=== PATIENT | male | born 1960 | race Caucasian/White ===

== ENCOUNTER 2023-09-20 07:27 | Emergency (ER) | payer OTHER, BC, SELFPAY ==
[2023-09-20 07:30] VITALS: BP 159/81
[2023-09-20 07:34] VITALS: BP 159/81
[2023-09-20] MEDS: LET TOPICAL ANESTHETIC GEL 3 ML TOPICAL (07:42)
[2023-09-20] MEDS: ADACEL 0.5 ML IM (07:48)
--- NOTE | 2023-09-20 08:42 | ED.GENMED ---
History of Present Illness
General
Chief Complaint: Head Injury
Time Seen by Provider: 09/20/23 07:28
Travel History
Have you had any contact with someone who has COVID-19?: No
Do you have any symptoms of coronavirus? Fever > 100 degrees, chills, cough, shortness of breath, sore throat, loss of taste or smell, muscle aches, or headache?: No
History of Present Illness
History of Present Illness:
63-year-old male with history of hypertension and hyperlipidemia presents to the emergency department for evaluation after mechanical fall that occurred when slipping on ice at work. Struck her head directly on the ground, there is a hematoma with
laceration to the midline parietal scalp. Bleeding is currently controlled. He takes 81 mg aspirin but no anticoagulants. Reports generalized neck and back pain, also reports right knee and left hand pain. Denies loss of consciousness. Denies
current dizziness, vision changes
Past History
Past History
ED Past Medical History: Hypercholesterolemia and Other (Peptic ulcer, colon polyps)
Patient has exhibited threatening behavior?: No
PSI?: No
Social History
Tobacco: Non-smoker
Review of Systems
Review of Systems
Allergies reviewed?: Yes
All Other Systems: ROS reviewed and negative except as documented in HPI and ROS
Phy Exam
Physical Exam
Physical Exam:
GEN: Well appearing, NAD, WDWN
Eyes: PERRLA, EOMs intact, no scleral icterus
HENT: 4 cm linear laceration to the midline parietal scalp with no active bleeding, moderate-sized hematoma adjacent to the wound oral mucosa moist. No midline cervical spine tenderness
Lungs: CTAB, no wheezes, rales, rhonchi, normal chest wall excursion
Cardiac: RRR
Abdomen: S, NT, ND, NABS, no masses or hepatosplenomegaly
Neuro: AO x 3, cranial nerves II through XII grossly intact, moves all extremities freely
MSK: No gross deformity or ecchymosis. Tenderness to the left ulnar aspect of the hand with no gross deformity or swelling. Tenderness along the patellar tendon on the right with no obvious joint effusion, range of motion is normal
Skin: No rashes, petechiae. Normal color, no pallor or jaundice.
Psych: Calm, cooperative, proper hygiene
Course
Orders/Labs/Results
Orders:
Orders
09/20/23 07:35
CT Head W/o Iv Contrast Urgent
Comment:
Reason For Exam: fall parietal hematoma
Lidocaine/Epinephrine/Tetracai [Let Topical Anesthetic Gel] 3 ml .ROUTE .STK-MED ONE
Tetanus/Diphth/Acelpertussis [Adacel] 0.5 ml IM .ONCE ONE
CR Hand - Left Min 3 Views Urgent
Comment:
Reason For Exam: fall
CR Knee- Right 4 Or More View* Urgent
Comment:
Reason For Exam: fall
09/20/23 07:42
Lidocaine/Epinephrine/Tetracai [Let Topical Anesthetic Gel] 3 ml TOPICAL NOW STA
Vital Signs
Initial and Last Documented VS:
Initial Vital Signs
Temp Pulse Resp BP Pulse Ox
98.3 F 70 18 159/81 97
09/20/23 07:30 09/20/23 07:30 09/20/23 07:30 09/20/23 07:30 09/20/23 07:30
Last Documented Vital Signs
Temp Pulse Resp BP Pulse Ox
98.3 F 70 18 159/81 97
09/20/23 07:30 09/20/23 07:30 09/20/23 07:30 09/20/23 07:34 09/20/23 07:34
MDM/Problems Addressed
MDM/Problems Addressed:
X-rays of the left hand and right knee independently interpreted by me are negative for acute osseous abnormality. CT scan of the head is negative per radiology. The patient is neurologically intact. He has no midline cervical spine tenderness no
range of motion limitation concerning for C-spine injury. The scalp laceration (4cm in length) was cleansed copiously with normal saline and anesthetized with topical let gel. 5 external sampson were applied with good hemostasis and wound
approximation. Discussed wound care and follow-up parameters.
*Critical Care Note
Total Time (30-74mins, 75-104mins- exclusive of procedures): Not Applicable
ED Attending Note
-
Portions of this chart may have been created with voice recognition software.� Occasional wrong word or��sound alike� substitutions may have occurred due to the inherent limitations of voice recognition software.
Discharge Plan
Departure
Patient Disposition: Home (Routine Discharge)
Date of Disposition: 09/20/23
Time of Disposition: 08:42
Patient with high blood pressure during this ER visit?: Yes
Discharge Problem:
Laceration of scalp, Contusion of hand, left, Contusion of right knee
Instructions: Laceration Repair With Sampson (DC)
Prescriptions:
No Action
pantoprazole 40 MG tablet,delayed release (DR/EC)
40 mg PO DAILY
One Daily Calcium/Iron 1 EACH tablet
1 tab PO DAILY
milk thistle 150 MG capsule
1,500 mg PO DAILY
Vitamin D3 (cholecalciferol):
5,000 units PO DAILY
nadolol 20 mg Tablet
20 mg PO BID
Repatha SureClick 140 mg/mL Pen Injector
140 mg SC Q2W
aspirin [aspirin] 81 mg tablet,chewable
81 mg PO DAILY Qty: 1 0RF
nitroglycerin [nitroglycerin] 0.4 mg tablet, sublingual
0.4 mg sublingual [id number] PRN (Reason: chest pain) Qty: 25 5RF
gabapentin 300 mg capsule
300 mg PO TID @ 0800,1200,1700
Referrals:
Josafat Wilson, DO [Family Provider] -
Activity Restrictions/Additional Instructions:
Keep wound clean and dry for next 24 hours
Rinse the wound gently with soap and water daily starting tomorrow
Staple removal by your primary doctor OR urgent care in 5-7 days
Tylenol and Ibuprofen may be used for pain
Interventions
Interventions:
*Risk Screen - Suicide Last Done: 09/20/23 07:30
*General Assessment Last Done: 09/20/23 07:30
*Neglect/Abuse Screening Last Done: 09/20/23 07:30
*Nursing Disposition Last Done: 09/20/23 09:14
ED-Musculoskeletal Assessment Last Done: 09/20/23 08:40
ED- Neurological Assessment Last Done: 09/20/23 08:40
ED-Skin Assessment Last Done: 09/20/23 08:40
Discharge Date and Time
Discharge Date/Time: 09/20/23 09:14
== END 2023-09-20 09:14 | disposition home or self-care (01) ==
LOC: EMR 07:27
PROVIDERS: EMERGENCY PHYSICIAN Emergency Medicine; FAMILY PHYSICIAN Family Medicine
DX: S01.01XA Laceration without foreign body of scalp, initial encounter (principal); S60.222A Contusion of left hand, initial encounter; S80.01XA Contusion of right knee, initial encounter; W00.0XXA Fall on same level due to ice and snow, initial encounter; Z23 Encounter for immunization; I10 Essential (primary) hypertension; E78.00 Pure hypercholesterolemia, unspecified
CPT/HCPCS: 99284; 12002; 90471; 70450; 73130; 73564; 90715

== ENCOUNTER → 2023-09-29 07:03 | Outpatient (REF) | payer BC, SELFPAY | LOC: DHCBC/DCA 07:03 | PROVIDERS: ATTENDING PHYSICIAN Internal Medicine | DX: R06.09 Other forms of dyspnea (principal); I25.10 Atherosclerotic heart disease of native coronary artery without angina pectoris | CPT/HCPCS: 78452; 93017; A9500 ==

== ENCOUNTER → 2023-10-09 15:46 | Outpatient (REF) | payer BC, SELFPAY | LOC: RAD 15:46 | PROVIDERS: ATTENDING PHYSICIAN Physician Assistant; FAMILY PHYSICIAN Family Medicine | DX: M94.0 Chondrocostal junction syndrome [Tietze] (principal); R07.9 Chest pain, unspecified | CPT/HCPCS: 71046 ==

== ENCOUNTER → 2023-10-16 14:31 | Outpatient (REF) | payer BC, SELFPAY | LOC: DHCBC MAIN 14:31 | PROVIDERS: ATTENDING PHYSICIAN Internal Medicine; FAMILY PHYSICIAN Family Medicine | DX: I25.10 Atherosclerotic heart disease of native coronary artery without angina pectoris (principal); R06.09 Other forms of dyspnea | CPT/HCPCS: 93306 ==

== ENCOUNTER → 2023-10-18 14:38 | Outpatient (REF) | payer BC, SELFPAY | LOC: HWRAD 14:38 | PROVIDERS: ATTENDING PHYSICIAN Internal Medicine Critical Care Medicine; FAMILY PHYSICIAN Family Medicine | DX: R06.09 Other forms of dyspnea (principal) | CPT/HCPCS: 71275; Q9967 ==

== ENCOUNTER 2023-10-22 06:35 | Emergency (ER) | payer BC, SELFPAY ==
[2023-10-22 06:44] VITALS: BP 130/73
[2023-10-22 07:00] VITALS: BP 123/59
[2023-10-22 07:08] LABS: % Basophils 0.8 % (0-2); % Eosinophils 3.7 % (0-6); % Immature Granulocytes 0.5 % (0-0.5); % Monocytes 9.2 % (1.7-9.3); % Neutrophils 58.8 % (42.2-75.2); Absolute Basophils 0.1 10^3/uL (0-0.2); Absolute Eosinophils 0.3 10^3/uL (0-0.7); Absolute Monocytes 0.7 10^3/uL (0.1-0.6); Absolute Neutrophils 4.4 10^3/uL (1.4-6.5); Hematocrit 41.2 % (39.0-52.0); Hemoglobin 14.3 g/dL (13.0-18.0); Mean Corp Hgb Conc. 34.7 g/dL (33.0-37.0); Mean Corpuscular Volume 95.2 fL (80.0-94.0); Mean Platelet Volume 10.2 fL (7.4-10.4); Nucleated Red Blood Cells % 0 % (-); Platelet Count 236 10^3/uL (130-400); Red Blood Cell Count 4.33 10^6/uL (4.70-6.10); Red Cell Dist. Width 12.2 % (11.5-14.5); White Blood Cell Count 7.5 10^3/uL (4.8-10.8)
[2023-10-22 07:14] LABS: ALT (SGPT) 23 U/L (0-50); AST (SGOT) 26 U/L (17-59); Albumin 4.1 g/dl (3.5-5.0); Alkaline Phosphatase 66 U/L (38-126); Blood Urea Nitrogen 18 mg/dl (9-20); Carbon Dioxide 27 mmol/L (22-30); Chloride 102 mmol/L (98-107); Glucose 144 mg/dl (70-99); Sodium 139 mmol/L (135-145); Total Bilirubin 0.6 mg/dl (0.2-1.3); eGFR > 60.00
[2023-10-22 07:24] LABS: Troponin I < 0.012 ng/ml
[2023-10-22 08:00] VITALS: BP 107/54
[2023-10-22] MEDS: NSS 1000 IV (08:15)
--- NOTE | 2023-10-22 08:15 | ED.GENMED ---
History of Present Illness
General
Chief Complaint: Chest Pain
Source: patient
Exam Limitations: none
Time Seen by Provider: 10/22/23 06:38
Travel History
Have you had any contact with someone who has COVID-19?: No
Do you have any symptoms of coronavirus? Fever > 100 degrees, chills, cough, shortness of breath, sore throat, loss of taste or smell, muscle aches, or headache?: No
History of Present Illness
History of Present Illness:
This is a 63yo male who presents with cp and sob. The patient states that he has had this pain in his lower chest for some time. Patient states that he has had a PE study, seen cardiology and had a cardiac catheterization. Also had a recent
stress test. Patient states that the pain does seem worse when he moves or palpates it. He also was recently started on medication by rn hedis for costochondritis. However, he does admit that he has been more short of breath. Today he was
extremely short of breath and woke up that way. He also has been short of breath when he walks. He today took a nitroglycerin. Patient states he then became diaphoretic and pale. On my evaluation the pain persists. He does not feel short of
breath at rest. No fevers.
Past History
Past History
ED Past Medical History: CAD, HTN, Hypercholesterolemia and Other (Peptic ulcer, colon polyps)
ED Past Surgical History: Orthopedic
Patient has exhibited threatening behavior?: No
PSI?: No
Social History
Tobacco: Non-smoker
Phy Exam
Physical Exam
Physical Exam:
CONSTITUTIONAL Patient alert and oriented to person, place and time. Well-appearing. Vital signs reviewed.
HEAD atraumatic, normocephalic.
EYES eyelids normal to inspection, Pupils equally round and reactive to light, Extraocular muscles intact, Conjunctiva normal, Sclera normal.
NECK normal range of motion, Trachea midline, no jugular venous distention.
RESPIRATORY CHEST No respiratory distress noted, Chest expansion equal, Bilateral breath sounds clear. There is tenderness to the lower sternal area and the costochondral junctions in the lower sternal region
CARDIOVASCULAR regular rate and rhythm, Heart sounds normal.
ABDOMEN abdomen nontender, Bowel sounds normal. No distention.
BACK normal inspection, no obvious deformities
UPPER EXTREMITY range of motion normal, Motor strength normal, no cyanosis, no edema.
LOWER EXTREMITY range of motion normal, Motor strength normal, no cyanosis, no edema.
NEURO Speech normal, No focal motor deficits, Counselor coma scale 15, Memory normal, Cranial Nerves intact to screening exam.
SKIN skin warm, dry, and normal in color.
PSYCHIATRIC patient oriented to person place and time, Normal affect.
Scores
Heart Score for Chest Pain Patients
STEMI patient?: No
History: Moderately Suspicious
ECG: Nonspecific Repolarization
Age: >45 - <65 years
Risk Factors: >/= 3 Risk Factors or History of CAD
Troponin: </= Normal Limit
Heart Score for Chest Pain Patients: 5
Heart Score Risk: 20.3% MACE over next 6 weeks
Course
Orders/Labs/Results
Orders:
Orders
10/22/23 06:43
Electrocardiogram (*1) Urgent
Reason for Study: Chest Pain
EKG- Treatment ONCE
10/22/23 06:51
Cardiac Monitoring- Treatment ONCE
IV Insert/Care/Rem.- Treatment PRN
O2 Therapy [RESP] Urgent
Titrate/Wean O2 to maintain O2 sat greater than (%): 90
Special Instructions: Maintain sats >/=90%
Pulse Ox/spot Check [RESP] Urgent
Quantity: 1
Special Instructions: ON ROOM AIR
10/22/23 06:52
Complete Blood Count/With Diff Urgent
Comprehensive Metabolic Panel Urgent
Troponin I Urgent
10/22/23 07:43
0.9% Sodium Chloride 1000 ml [Nss] 1,000 ml IV BOLUS
10/22/23 11:10
EKG [Electrocardiogram (*1)] Urgent
Reason for Study: Chest Pain
EKG- Treatment ONCE
10/22/23 11:13
CR Chest - 2 Views Urgent
Comment:
Reason For Exam: sob
10/22/23 11:14
Troponin I Urgent
Abnormal Lab Results
10/22/23
06:52
RBC 4.33 L 10^6/uL
(4.70-6.10)
MCV 95.2 H fL
(80.0-94.0)
MCH 33.0 H pg
(27.0-31.0)
Absolute Monos (auto) 0.7 H 10^3/uL
(0.1-0.6)
Glucose 144 H mg/dl
(70-99)
10/22/23 06:52
10/22/23 06:52
Vital Signs
Initial and Last Documented VS:
Initial Vital Signs
Pulse Resp BP Pulse Ox
53 16 130/73 97
10/22/23 06:44 10/22/23 06:44 10/22/23 06:44 10/22/23 06:44
Last Documented Vital Signs
Temp Pulse Resp BP Pulse Ox
98.1 F 52 12 120/59 98
10/22/23 12:49 10/22/23 12:30 10/22/23 12:30 10/22/23 11:00 10/22/23 12:30
MDM/Problems Addressed
Differential Diagnosis Includes:
Musculoskeletal chest pain, ACS, pneumonia, pneumothorax, PE
MDM/Problems Addressed:
Chronic chest pain, dyspnea, abnormal stress test
Chronic conditions affecting care: CAD
*Radiology
Radiology exam reviewed: all reviewed NAD by ED Provider
*Pulse Oximetry
Patient hypoxic: no
*EKG
Interpreted by ED Provider?: Yes
Interpretation: abnormal
Rate: bradycardiac
Rhythm: sinus
[place]: normal axis
Interval: normal interval
Ischemia: non-specific ST changes
*Major Account Manager Interpretation
Rate: bradycardiac
Interpretation: abnormal
Rhythm: sinus
*Critical Care Note
Total Time (30-74mins, 75-104mins- exclusive of procedures): Not Applicable
Data Reviewed
Review of Other/Old Records Reveals: Operative Reports (September cardiac catheterization reviewed) and Other (September stress test reviewed)
Source: patient and spouse
Further Testing Considered But Not Given:
Considered CT or D-dimer but patient recently had a negative study
Patient Management
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
Escalation/DeEscalation of care consider admission/obs:
Chronic chest pain in the 63-year-old but now has been more short of breath. Did recently have an abnormal stress test. Also had an abnormal cardiac catheterization but flow was noted to be okay. No intervention was made. Case discussed with
cardiology. Will consult
Update Note
Update Note:
Patient seen and evaluated by cardiology. He recommends 4 days of 40 mg of Lasix. Outpatient follow-up troponin negative. Return warnings provide
ED Attending Note
-
Portions of this chart may have been created with voice recognition software.� Occasional wrong word or��sound alike� substitutions may have occurred due to the inherent limitations of voice recognition software.
Discharge Plan
Departure
Patient Disposition: Home (Routine Discharge)
Date of Disposition: 10/22/23
Time of Disposition: 12:43
Patient with high blood pressure during this ER visit?: No
Discharge Problem:
Chest pain, Dyspnea
Instructions: Chest Pain CBC Follow Up
Prescriptions:
New
furosemide [Lasix] 40 mg tablet
40 mg PO DAILY Qty: 4 0RF
No Action
pantoprazole 40 MG tablet,delayed release (DR/EC)
40 mg PO DAILY
One Daily Calcium/Iron 1 EACH tablet
1 tab PO DAILY
milk thistle 150 MG capsule
1,500 mg PO DAILY
Vitamin D3 (cholecalciferol):
5,000 units PO DAILY
nadolol 20 mg Tablet
20 mg PO BID
Repatha SureClick 140 mg/mL Pen Injector
140 mg SC Q2W
aspirin [aspirin] 81 mg tablet,chewable
81 mg PO DAILY Qty: 1 0RF
nitroglycerin [nitroglycerin] 0.4 mg tablet, sublingual
0.4 mg sublingual [id number] PRN (Reason: chest pain) Qty: 25 5RF
gabapentin 300 mg capsule
300 mg PO TID @ 0800,1200,1700
Referrals:
Josafat Wilson, DO [Family Provider] -
Activity Restrictions/Additional Instructions:
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 Return immediately for worsening symptoms, shortness of breath, palpitations, weakness of any kind or any other concerns.
Interventions
Interventions:
*Risk Screen - Suicide Last Done: 10/22/23 07:15
*General Assessment Last Done: 10/22/23 07:09
*Neglect/Abuse Screening Last Done: 10/22/23 07:15
*ED COVID-19 Vaccine History Last Done: 10/22/23 07:09
*Nursing Disposition Last Done: 10/22/23 13:02
ED- Cardiac Assessment Last Done: 10/22/23 07:09
Discharge Date and Time
Discharge Date/Time: 10/22/23 13:03
[2023-10-22 09:00] VITALS: BP 125/66
[2023-10-22 10:00] VITALS: BP 131/61
[2023-10-22 11:00] VITALS: BP 120/59
[2023-10-22 11:43] LABS: Troponin I < 0.012 ng/ml
--- NOTE | 2023-10-22 12:29 | CON.CAR ---
Consultation
Consultation Request
Date/Time Consultation Requested: October 22, 2023 9 AM
Date/Time Consultation Performed: October 22, 2023 12:30 PM
Requesting Provider: Emergency room
Performing Provider: aDle De Santiago
Reason for Consultation: Chest pain shortness of breath
Medical History
-
Chief Complaint: Chest pain and shortness of breath
History of Present Illness:
63-year-old male with past medical history of nonobstructive CAD, hypertension, familial hypercholesterolemia, cluster headaches who is here today for chest pain and dyspnea on exertion. The patient says that he awoke this morning with chest pain.
He said it is adjacent to the sternum and is sharp in quality. He is able to point to it and it is worse with palpation. Additionally, tells me that he has ongoing shortness of breath. This has been ongoing for months. Additionally, he also
notes some paroxysmal nocturnal dyspnea. He recently had a nuclear stress test that normal perfusion. He also had an echocardiogram that was unremarkable. He is not on any diuretics. He has recently seen rheumatology and it appears they have
started him on colchicine for this costochondritis. He has only taken this for a couple of days.
In the emergency room troponins were negative and ECGs did not show any acute ischemic changes. I discussed with him given his negative troponins, recent normal perfusion on nuclear stress test, and unremarkable echocardiogram that this unlikely to
be coronary artery disease. I discussed with him that maybe this is a component of heart failure with preserved ejection fraction, and suggested trying Lasix for the next few days. He is agreeable. I also described with him that if he were to be
lightheaded and dizzy that may be we over diuresed him and he should stop the Lasix.
Past Medical History
Past Medical History: Other (nonobstructive CAD, hypertension, familial hypercholesterolemia, cluster headaches)
Past Surgical History: Orthopedic
Social History
Tobacco: Non-Smoker
Alcohol: Occasional
Drug: None
Personal:
Living: With Family
Employment: Employed
Family History
Family History: Reviewed & Not Pertinent
Allergies / Home Medications
Allergy/AdvReac Type Severity Reaction Status Date / Time
[id number] Reductase Allergy Severe Pharmacy Verified 10/22/23 06:40
Inhibitor to Review
Medication Instructions Recorded Confirmed Type
[id number]-Xh-cyre-minerals (One 1 tab PO DAILY 02/24/20 02/26/23 History
Daily Calcium/Iron tablet)
pantoprazole 40 mg tablet,delayed 40 mg PO DAILY 02/24/20 02/26/23 History
release
Vitamin D3 (cholecalciferol): 5,000 units PO DAILY 08/12/20 02/26/23 History
milk thistle 150 mg capsule 1,500 mg PO DAILY 08/12/20 02/26/23 History
aspirin 81 mg chewable tablet 81 mg PO DAILY #1 tab 09/09/22 02/26/23 Rx
evolocumab 140 mg/mL subcutaneous 140 mg SC Q2W 09/09/22 02/26/23 History
pen injector (Repatha SureClick)
nadolol 20 mg tablet 20 mg PO BID 09/09/22 02/26/23 History
nitroglycerin 0.4 mg sublingual 0.4 mg sublingual [id number] PRN 09/09/22 02/26/23 Rx
tablet chest pain #25 tabs
gabapentin 300 mg capsule 300 mg PO TID @ 0800,1200,1700 02/26/23 02/26/23 History
headache
Review of Systems
-
All other systems: Negative unless noted
Physical Exam
Vital Signs
Pulse Resp BP Pulse Ox
48 11 120/59 96
10/22/23 11:00 10/22/23 11:00 10/22/23 11:00 10/22/23 11:00
Lab Results
10/22/23 06:52
10/22/23 06:52
Troponin I < 0.012 ng/ml 03/17/24 11:14
Physical Exam
General: Well Developed, Well Nourished and No Apparent Distress
HEENT: Normocephalic
Respiratory: Crackles (Trace) and Non Labored Respirations
Cardiac: S1/S2 and Regular Rhythm
GI: Soft
Musculoskeletal: No Clubbing, No Cyanosis and No Edema
Skin: Warm and Dry
Neuro: AO x 3
Psych: Calm
Impression / Plan
-
63-year-old male with past medical history of nonobstructive CAD, hypertension, familial hypercholesterolemia, cluster headaches who is here today for chest pain and dyspnea on exertion. He also mentioned that he had some paroxysmal nocturnal
dyspnea. Given his normal nuclear stress test, unremarkable TTE, and nonobstructive CAD on catheterization last year is unlikely that this is obstructive coronary disease. Additionally, troponins were obtained and have been negative x 2. I
discussed with him that maybe he has a slight component of heart failure with preserved ejection fraction discussed a trial of diuretics. He is agreeable to this.
Possible heart failure preserved ejection fraction
-Lasix 40 mg x 4 days he will call and let us know how he feels on Monday to see if this improved his shortness of breath
-I also discussed that he if he were to become lightheaded and dizzy he should stop the Lasix
-If the diuretics do not work would then consider possible workup for pulmonary hypertension
Chest pain reproducible on palpation possible costochondritis
-Continue colchicine
-Normal perfusion on recent nuclear stress test in September, negative troponin, unremarkable TTE, and nonobstructive CAD on cath last year make obstructive coronary artery disease less likely discussed this with patient
TTE October 16, 2023 :CONCLUSIONS
�Normal biventricular size and systolic function without regional wall motion
�abnormality. Estimated LVEF 60-65%.
�No significant valve disease.
Nuclear stress test September 29, 2023 no perfusion evidence of ischemia or infarction systolic function is normal EF is 63%
Heart catheterization 2022:CONCLUSIONS
1: Normal left ventricular wall motion with EF 65%
2: Multivessel CAD as described-compared with the prior study from 02/24/2020, there has been mild progression of circumflex and LAD disease
3.� The focal 70% distal circumflex lesion is nonflow limiting by iFR evaluation (similar to the prior study from 2019).� The proximal to mid LAD disease is also nonflow limiting
4.� Continue Repatha and low-dose aspirin
5.� The patient had prolonged chest discomfort yesterday and had severe chest discomfort in the recovery room and when placed on the cath table.� This pain was not responsive to nitroglycerin and actually could be worsened with palpation of the
sternum.� The pain is consistent with a noncardiac etiology
Data Reviewed
-
EKG: Tracing Personally Visualized and interpreted, Discussed with Physician and Discussed with Patient
Radiology: Image Personally Visualized and interpreted
Medical Tests (Nuc Med, Echo etc): Report Reviewed by me, Discussed with Physician, Discussed with Patient and Discussed with Family
Labs: Labs Reviewed by me, Discussed with Physician, Discussed with Patient and Discussed with Family
== END 2023-10-22 13:03 | disposition home or self-care (01) ==
LOC: EMR 06:35
PROVIDERS: EMERGENCY PHYSICIAN Emergency Medicine; FAMILY PHYSICIAN Family Medicine; OTHER PHYSICIAN Internal Medicine Cardiovascular Disease
DX: R07.89 Other chest pain (principal); R06.00 Dyspnea, unspecified; I25.10 Atherosclerotic heart disease of native coronary artery without angina pectoris; I11.0 Hypertensive heart disease with heart failure; I50.32 Chronic diastolic (congestive) heart failure; E78.01 Familial hypercholesterolemia; G89.29 Other chronic pain; Z87.11 Personal history of peptic ulcer disease; Z87.19 Personal history of other diseases of the digestive system
CPT/HCPCS: 99283; 96360; 71046; 80053; 84484; 85025; 93005

== ENCOUNTER 2023-11-07 13:10 | Emergency (ER) | payer BC, SELFPAY ==
[2023-11-07 13:25] VITALS: BP 117/77
[2023-11-07 15:30] VITALS: BP 118/61
--- NOTE | 2023-11-07 16:10 | ED.GENMED ---
History of Present Illness
General
Chief Complaint: Headache
Source: patient
Exam Limitations: none
Time Seen by Provider: 11/07/23 14:20
Travel History
Have you had any contact with someone who has COVID-19?: No
Do you have any symptoms of coronavirus? Fever > 100 degrees, chills, cough, shortness of breath, sore throat, loss of taste or smell, muscle aches, or headache?: No
History of Present Illness
History of Present Illness:
63-year-old male presents for evaluation of sharp headache that he develops intermittently over the back of his head. He was seen here 6 weeks ago after a slip and fall on the ice. He fell backwards and had a laceration to his scalp. Intermittent
sharp pain and then ongoing however starting 2 days ago he developed shakiness in the right hand. He states this is more prominent when he tries to lift something with his hand. No vision change. No neck pain. No other numbness or weakness. No
chest pain or shortness of breath. He is not anticoagulated. He had a CT of his head when he was here 6 weeks ago this was negative.
Past History
Past History
ED Past Medical History: CAD, HTN, Hypercholesterolemia and Other (Peptic ulcer, colon polyps)
ED Past Surgical History: Orthopedic
Patient has exhibited threatening behavior?: No
PSI?: No
Social History
Tobacco: Non-smoker
Phy Exam
Physical Exam
Physical Exam:
General: Well-appearing male no acute respiratory distress
HEENT: Normocephalic atraumatic well-appearing laceration to the posterior scalp that is healed without surrounding erythema or swelling
Heart: Regular rate and rhythm no murmurs
Lungs: Clear to auscultation bilaterally no wheezing
Neurologic: Normal gait alert and oriented finger-nose intact no ataxia no nystagmus no drift no weakness no tremor
Extremities: No cyanosis or edema
Course
Orders/Labs/Results
Orders:
Orders
11/07/23 14:36
CT Head W/o Iv Contrast Urgent
Comment:
Reason For Exam: headache
Vital Signs
Initial and Last Documented VS:
Initial Vital Signs
Temp Pulse Resp BP Pulse Ox
98.3 F 65 16 117/77 96
11/07/23 13:25 11/07/23 13:25 11/07/23 13:25 11/07/23 13:25 11/07/23 13:25
Last Documented Vital Signs
Temp Pulse Resp BP Pulse Ox
98.3 F 65 16 117/77 96
11/07/23 13:25 11/07/23 13:25 11/07/23 13:25 11/07/23 13:25 11/07/23 13:25
MDM/Problems Addressed
Differential Diagnosis Includes:
Headache status post fall 6 weeks ago. Associated shakiness of the right hand that was not visualized today. Will check repeat CT to evaluate for possible subdural
*Critical Care Note
Total Time (30-74mins, 75-104mins- exclusive of procedures): Not Applicable
Update Note
Update Note:
CT of the head was negative for acute finding. Patient reassured. Do not suspect acute stroke. No tremors or shakiness noted on exam today. Exam is normal today. Will discharge home with neurology follow-up.
ED Attending Note
-
Portions of this chart may have been created with voice recognition software.� Occasional wrong word or��sound alike� substitutions may have occurred due to the inherent limitations of voice recognition software.
Discharge Plan
Departure
Patient Disposition: Home (Routine Discharge)
Date of Disposition: 11/07/23
Time of Disposition: 16:11
Patient with high blood pressure during this ER visit?: No
Discharge Problem:
Headache
Instructions: Headache, Adult (DC)
Prescriptions:
No Action
pantoprazole 40 MG tablet,delayed release (DR/EC)
40 mg PO DAILY
One Daily Calcium/Iron 1 EACH tablet
1 tab PO DAILY
milk thistle 150 MG capsule
1,500 mg PO DAILY
Vitamin D3 (cholecalciferol):
5,000 units PO DAILY
nadolol 20 mg Tablet
20 mg PO BID
Repatha SureClick 140 mg/mL Pen Injector
140 mg SC Q2W
aspirin [aspirin] 81 mg tablet,chewable
81 mg PO DAILY Qty: 1 0RF
nitroglycerin [nitroglycerin] 0.4 mg tablet, sublingual
0.4 mg sublingual [id number] PRN (Reason: chest pain) Qty: 25 5RF
gabapentin 300 mg capsule
300 mg PO TID @ 0800,1200,1700
furosemide [Lasix] 40 mg tablet
40 mg PO DAILY Qty: 4 0RF
Referrals:
Josafat Wilson, [Family Provider] -
Activity Restrictions/Additional Instructions:
Please return here for worsening symptoms. Follow-up with your neurologist otherwise
Interventions
Interventions:
*Risk Screen - Suicide Last Done: 11/07/23 13:25
*General Assessment Last Done: 11/07/23 13:25
*Neglect/Abuse Screening Last Done: 11/07/23 13:25
Discharge Date and Time
Print Language: INDONESIAN
== END 2023-11-07 16:15 | disposition home or self-care (01) ==
LOC: EMR 13:10
PROVIDERS: EMERGENCY PHYSICIAN Emergency Medicine; FAMILY PHYSICIAN Family Medicine
DX: R51.9 Headache, unspecified (principal); I25.10 Atherosclerotic heart disease of native coronary artery without angina pectoris; I10 Essential (primary) hypertension; E78.00 Pure hypercholesterolemia, unspecified; Z87.11 Personal history of peptic ulcer disease; Z87.19 Personal history of other diseases of the digestive system
CPT/HCPCS: 99284; 70450

== ENCOUNTER → 2024-01-26 06:51 | Outpatient (REF) | payer BC, SELFPAY | LOC: RAD 06:51 | PROVIDERS: ATTENDING PHYSICIAN Family Medicine | DX: R59.1 Generalized enlarged lymph nodes (principal) | CPT/HCPCS: 76536 ==

== ENCOUNTER → 2024-05-22 08:49 | Outpatient (REF) | payer BC, SELFPAY | LOC: HWRAD 08:49 | PROVIDERS: ATTENDING PHYSICIAN Internal Medicine Gastroenterology | DX: R10.30 Lower abdominal pain, unspecified (principal); R14.0 Abdominal distension (gaseous) | CPT/HCPCS: 76700 ==

== ENCOUNTER → 2024-06-27 15:21 | Outpatient (REF) | payer BC, SELFPAY | LOC: RCS 15:21 | PROVIDERS: ATTENDING PHYSICIAN Specialist | DX: Z01.818 Encounter for other preprocedural examination (principal) | CPT/HCPCS: 93005 ==

== ENCOUNTER → 2024-06-28 07:24 | Outpatient (REF) | payer BC, SELFPAY | LOC: RAD 07:24 | PROVIDERS: ATTENDING PHYSICIAN Internal Medicine Gastroenterology; FAMILY PHYSICIAN Family Medicine | DX: R10.11 Right upper quadrant pain (principal) | CPT/HCPCS: 78226; A9537; J2805 ==

== ENCOUNTER 2024-06-28 10:02 | Emergency (ER) | payer BC, SELFPAY ==
[2024-06-28 10:03] VITALS: BP 157/80; BMI 29.5
[2024-06-28 10:04] VITALS: BP 157/80
--- NOTE | 2024-06-28 10:04 | ED.GENMED ---
History of Present Illness
General
Chief Complaint: Medication Reaction
Source: patient
Exam Limitations: none
Time Seen by Provider: 06/28/24 10:03
Nursing documentation reviewed up to this point in time: agreed with
History of Present Illness
History of Present Illness:
64-year-old male with history of cluster headaches, nonobstructive CAD, HTN, HLD, BPH, cardiac cath, has had R side abd pain for over a year. Today in [facility] for CCK stimulated cholescintigraphy, immediately after IV injection of
cholecystokinin, developed general body rigors, Rapid Response called and pt arrived to ED with the rigors. Denies chest pain, SOB, abdominal pain, nausea.
Past History
Past History
ED Past Medical History: CAD, HTN, Hypercholesterolemia and Other (Peptic ulcer, colon polyps)
ED Past Surgical History: Orthopedic
Patient has exhibited threatening behavior?: No
PSI?: No
Social History
Tobacco: Non-smoker
Personal:
Living: with family
Employment: Employed
Review of Systems
Review of Systems
Allergies reviewed?: Yes
All Other Systems: ROS reviewed and negative except as documented in HPI and ROS
Constitutional: Reports other (generalized body shaking); Denies fever
Respiratory: Denies trouble breathing
Cardiac: Denies chest pain or syncope
ABD/GI: Denies abdominal pain, nausea, vomiting or diarrhea
Musculoskeletal: Reports no symptoms
Skin: Reports no symptoms
Neurological: Reports no symptoms
Phy Exam
Physical Exam
Physical Exam:
GENERAL: No acute distress. A&Ox3.
CONSTITUTIONAL: Afebrile.
EYES: PERRL, conjunctivae normal
ENMT: moist mucus membranes, Pharynx nl
RESPIRATORY: Regular respirations, nonlabored, lungs clear.
CARDIOVASCULAR: Regular rate and rhythm, no murmurs, no rubs.
GI: Soft, nontender, normal BS
MUSCULOSKELETAL: Moves with ease. Well perfused.
SKIN: Warm, dry, pink. Mild local erythema at IV site.
PSYCH: Normal mood and affect. Well kept, interactive and appropriate
NEUROLOGIC: Awake, alert and oriented. No focal neurological deficits. Shaking has completely stopped
Course
Orders/Labs/Results
Orders:
Abnormal Lab Results
06/28/24
10:07
POC Glucose 104 H mg/dl
(70-99)
Vital Signs
Initial and Last Documented VS:
Initial Vital Signs
BP
157/80
06/28/24 10:03
Last Documented Vital Signs
Temp Pulse Resp BP Pulse Ox
98.1 F 45 11 128/62 98
06/28/24 10:04 06/28/24 11:00 06/28/24 11:00 06/28/24 11:00 06/28/24 10:21
MDM/Problems Addressed
Differential Diagnosis Includes:
vasovagal episode, side effect from medication
MDM/Problems Addressed:
64-year-old male with history of cluster headaches, nonobstructive CAD, HTN, HLD, BPH, cardiac cath, has had R side abd pain for over a year. Today in [facility] for CCK stimulated cholescintigraphy, immediately after IV injection of
cholecystokinin, developed general body rigors, Rapid Response called and pt arrived to ED with the rigors. Denies chest pain, SOB, abdominal pain, nausea. IV site is mildly erythematous locally.
10:20 a.m.
Shaking has dissipated
Pt is asymptomatic at this time.
VSS
Texted radiologist Dr. Oliveira: 'I have 64 yo male Monty Camarillo who developed generalized rigors, shaking immediately post IV administration of cholecystokinin for GB study. It looks like it may have infiltrated some. Rapid response was called to
[facility] and pt now here. Rigors subsided, no other symptoms. Have you heard of this as side effect from cholecystokinin? I can't seem to find anything on it.' Dr Catherine suggests maybe vasovagal.
11:30 a.m.
Pt remains asymptomatic, wants to go home
Has been OOB and ambulating, feels steady on his feet
Stable for discharge.
*Critical Care Note
Total Time (30-74mins, 75-104mins- exclusive of procedures): Not Applicable
ED Attending Note
-
Portions of this chart may have been created with voice recognition software.� Occasional wrong word or��sound alike� substitutions may have occurred due to the inherent limitations of voice recognition software.
Discharge Plan
Departure
Patient Disposition: Home (Routine Discharge)
Date of Disposition: 06/28/24
Time of Disposition: 11:39
Patient with high blood pressure during this ER visit?: No
Condition: Good
Discharge Problem:
Episode of shaking
Instructions: Vasovagal Response (DC)
Prescriptions:
No Action
pantoprazole 40 MG tablet,delayed release (DR/EC)
40 mg PO DAILY
One Daily Calcium/Iron 1 EACH tablet
1 tab PO DAILY
milk thistle 150 MG capsule
1,500 mg PO DAILY
Vitamin D3 (cholecalciferol):
5,000 units PO DAILY
nadolol 20 mg Tablet
20 mg PO BID
Repatha SureClick 140 mg/mL Pen Injector
140 mg SC Q2W
aspirin [aspirin] 81 mg tablet,chewable
81 mg PO DAILY Qty: 1 0RF
nitroglycerin [nitroglycerin] 0.4 mg tablet, sublingual
0.4 mg sublingual [id number] PRN (Reason: chest pain) Qty: 25 5RF
gabapentin 300 mg capsule
300 mg PO TID @ 0800,1200,1700
furosemide [Lasix] 40 mg tablet
40 mg PO DAILY Qty: 4 0RF
Activity Restrictions/Additional Instructions:
As we discussed, there is nothing worrisome in your exam
You may have had a vasovagal episode
Activity as tolerated.
Interventions
Interventions:
*Risk Screen - Suicide Last Done: 06/28/24 10:27
*General Assessment Last Done: 06/28/24 10:04
*Neglect/Abuse Screening Last Done: 06/28/24 10:04
ED- Fall Risk Assessment Last Done: 06/28/24 10:21
*ED COVID-19 Vaccine History Last Done: 06/28/24 10:26
*Nursing Disposition Last Done: 06/28/24 11:43
ED-Skin Assessment Last Done: 06/28/24 10:21
ED- Pulmonary Assessment Last Done: 06/28/24 10:21
ED-EENT Assessment Last Done: 06/28/24 10:21
Discharge Date and Time
Discharge Date/Time: 06/28/24 12:18
Print Language: [place]
[2024-06-28 10:09] LABS: Glucose - Point of Care 104 mg/dl (70-99)
[2024-06-28 10:16] VITALS: BP 148/68
[2024-06-28 10:50] VITALS: BP 156/70
[2024-06-28 11:00] VITALS: BP 128/62
== END 2024-06-28 12:18 | disposition home or self-care (01) ==
LOC: EMR 10:02
PROVIDERS: EMERGENCY PHYSICIAN Emergency Medicine; FAMILY PHYSICIAN Student in an Organized Health Care Education/Training Program
DX: R25.1 Tremor, unspecified (principal); E78.00 Pure hypercholesterolemia, unspecified; I10 Essential (primary) hypertension; I25.10 Atherosclerotic heart disease of native coronary artery without angina pectoris; N40.0 Benign prostatic hyperplasia without lower urinary tract symptoms; Z87.11 Personal history of peptic ulcer disease
CPT/HCPCS: 99284; 78226; 82962; A9537; J2805

== ENCOUNTER 2024-12-27 06:22 | Day surgery (SDC) | payer BC, SELFPAY ==
[2024-12-23 07:40] LABS: Hematocrit 41.4 % (39.0-52.0); Hemoglobin 14.4 g/dL (13.0-18.0); Mean Corp Hgb Conc. 34.8 g/dL (33.0-37.0); Mean Corpuscular Hgb 33.3 pg (27.0-31.0); Mean Corpuscular Volume 95.8 fL (80.0-94.0); Platelet Count 228 10^3/uL (130-400); Red Blood Cell Count 4.32 10^6/uL (4.70-6.10); Red Cell Dist. Width 12.8 % (11.5-14.5); White Blood Cell Count 10.1 10^3/uL (4.8-10.8)
[2024-12-23 08:06] LABS: Blood Urea Nitrogen 16 mg/dl (9-20); Calcium 9.3 mg/dl (8.4-10.2); Carbon Dioxide 32 mmol/L (22-30); Chloride 108 mmol/L (98-107); Glucose 109 mg/dl (70-99); Potassium 4.4 mmol/L (3.5-5.1); Sodium 144 mmol/L (135-145); eGFR > 60.00
[2024-12-23 13:40] VITALS: BMI 26.5
[2024-12-27] VITALS (7 sets, daily range): BP systolic 125–142; BP diastolic 60–68; BMI 26.5
[2024-12-27] MEDS: CELEBREX 200 MG PO (10:22)
[2024-12-27] MEDS: TYLENOL 1000 MG PO (10:22)
[2024-12-27] MEDS: NORMOSOL-R/PLASMALYTE-A 1000 IV (10:23)
== END 2024-12-27 13:20 | disposition home or self-care (01) ==
LOC: SDS 06:22
PROVIDERS: ATTENDING PHYSICIAN Specialist; FAMILY PHYSICIAN Student in an Organized Health Care Education/Training Program
DX: S83.242A Other tear of medial meniscus, current injury, left knee, initial encounter (principal); X58.XXXA Exposure to other specified factors, initial encounter; M94.262 Chondromalacia, left knee
CPT/HCPCS: 29881; 36415; 80048; 85027